=== PATIENT | female | born 1960 | race Two or more races ===

== ENCOUNTER → 2017-11-03 | Outpatient (CLI) | payer MEDICARE ==
--- NOTE | 2017-11-03 11:35 | REP ---
Clinical: Cough. Technique: PA and lateral. Comparison: None. Findings: Mediastinum and cardiac silhouette are within normal limits. Lung cruz suggest diffuse chronic interstitial changes. Acute coarsened markings cannot be excluded and may reflect chronic reactive airway disease and/or bronchitis. Correlation is recommended. No focal consolidation, effusion, or pneumothorax. Skeletal structures are intact. Impression: No prior examination for comparison. Cannot exclude bronchitis and/or chronic reactive airway disease. No focal consolidation or effusion. Signed by Houston Sanders MD 11/03/2017 11:25 A
== END ==
LOC: M LRY 11:02
PROVIDERS: ATTEND Nurse Practitioner Family
DX: R05 Cough (principal)